=== PATIENT | male | born 1995 | race Caucasian/White ===

== ENCOUNTER 2022-10-11 16:26 | Emergency (ER) | payer OTHER ==
[~2022-10-11] VITALS: Ht 180.3 cm; Wt 65.8 kg
[2022-10-11] MEDS ORDERED: NEOMYCIN/POLYMYXIN/BACITRACIN 15 GM TUBE TOP ONE (17:15)
[2022-10-11] MEDS ORDERED: CYCLOBENZAPRINE5 MG PO (17:43)
== END 2022-10-11 17:50 | disposition home or self-care (01) ==
LOC: FSED 16:45
DX: S00.212A Abrasion of left eyelid and periocular area, initial encounter (principal); V43.52XA Car driver injured in collision with other type car in traffic accident, initial encounter; Y92.488 Other paved roadways as the place of occurrence of the external cause
CPT/HCPCS: 70450; 99283